=== PATIENT | female | born 1960 | race Caucasian/White ===

== ENCOUNTER 2017-10-14 07:27 | Day surgery (SDC) | payer OTHER ==
[~2017-10-14 07:27] MED LIST: PROPOFOL INJ 200 MG/20 ML VIAL IV ONE
[2017-10-14] MEDS ORDERED: PROPOFOL INJ 200 MG/20 ML VIAL IV ONE (09:09)
[2017-10-14 09:40] VITALS: BP 10/58
--- NOTE | 2017-10-14 11:24 | Operative Report ---
Operative Report DATE OF SURGERY: 10/14/17 Operative Report: The risks, benefits and alternatives of the procedure including risks of bleeding, perforation requiring surgery are explained to the patient in detail and informed consent is obtained. Patient was taken back to the endoscopy suite and placed in a left, lateral decubital position. Timeout was called. Propofol medications administered. A rectal examination is done which did not reveal any masses, tears or fissures. An Olympus videoscope was inserted into the patient's rectum. The scope was then carefully advanced all the way to the cecum. The cecum was identified by the usual anatomical landmarks including the ileocecal valve as well as the appendiceal office. Photodocumentation is obtained. The scope was then sequentially pulled back via the various segments of the colon including the ascending colon, hepatic flexure, transverse colon, splenic flexure, descending colon and finding to the rectosigmoid portions of the colon. Retroflexion maneuvers performed. The risks benefits and alternatives of the procedure explained to the patient in detail and informed consent is obtained.A GIF Olympus video scope was inserted into the patient's mouth and hypopharynx, the esophagus is identified intubated and insufflated, the scope was then advanced through the esophagus stomach and duodenum, retroflexion maneuver is done, the esophagus stomach and first and second portions of the duodenum examined Patient signed all of her consent forms after she read through them. This was witnessed by nursing. PREOPERATIVE DIAGNOSIS: Colorectal cancer screening. Known history of Mullins' s esophagus, ablative procedure have been discussed with the patient when she was seen as an outpatient. POSTOPERATIVE DIAGNOSIS: Small area of Mullins's status post ablation. Normal colorectal cancer screening OPERATION: Diagnostic colonoscopy. EGD with ablation SURGEON: SHELLI ALTMAN ANESTHESIA: LMAC TISSUE REMOVED OR ALTERED: None. COMPLICATIONS: None. ESTIMATED BLOOD LOSS: None. INTRAOPERATIVE FINDINGS: As noted above. PROCEDURE: Patient tolerated procedure well. No immediate postprocedure complications are noted. Patient discharged in good condition. Discharge date 10/14/2017. Results are discussed with both the patient, and her sister was present as her route sales delivery drivers supervisor. Discharge diet: Regular. Discharge activity: Regular. 2-3 week follow-up to discuss findings. We will call patient once biopsies available. She is instructed to call the office or proceed to the emergency room should there be any further problems or questions. 10 year surveillance colonoscopy.
== END 2017-10-14 09:45 | disposition home or self-care (01) ==
LOC: END 07:27
PROVIDERS: ATTEND Internal Medicine Gastroenterology
PROC: 0DJD8ZZ Inspection of Lower Intestinal Tract, Via Natural or Artificial Opening Endoscopic (ICD-10-PCS; principal; 2017-10-14 09:00)
PROC: 0D558ZZ Destruction of Esophagus, Via Natural or Artificial Opening Endoscopic (ICD-10-PCS; 2017-10-14 09:00)
DX: Z12.11 Encounter for screening for malignant neoplasm of colon (principal); K22.719 Barrett's esophagus with dysplasia, unspecified; Z80.0 Family history of malignant neoplasm of digestive organs; R01.1 Cardiac murmur, unspecified; E06.9 Thyroiditis, unspecified; E04.9 Nontoxic goiter, unspecified; Z79.899 Other long term (current) drug therapy; Z88.0 Allergy status to penicillin
CPT/HCPCS: 43270; 45378; J2704; 813